=== PATIENT | female | born 1985 | race Caucasian/White ===

== ENCOUNTER 2021-01-20 07:06 | Emergency (ER) | payer MEDICAID ==
[~2021-01-20] VITALS: Ht 172.7 cm; Wt 82.0 kg
[2021-01-20 08:28] LABS: CLARITY URINE CLEAR (CLEAR); COLOR URINE YELLOW (YELLOW); KETONES URINE NEGATIVE (NEGATIVE); LEUKOCYTE ESTERASE URINE NEGATIVE (NEGATIVE); NITRITE URINE NEGATIVE (NEGATIVE); OCCULT BLOOD URINE NEGATIVE (NEGATIVE); PROTEIN URINE NEGATIVE (NEGATIVE); SPECIFIC GRAVITY URINE 1.018 (1.005-1.030); UROBILINOGEN URINE 0.2 E.U./dL (0.2-1.0)
[2021-01-20 08:51] LABS: BASOPHILS % 0.6 % (0.0-2.0); EOSINOPHILS % 0.3 % (0.0-5.0); HEMATOCRIT. 40.9 % (36.0-48.0); HEMOGLOBIN. 12.9 g/dL (12.0-16.0); LYMPHOCYTES % 18.6 % (20.0-50.0); MEAN CORPUSCULAR HEMOGLOBIN 25.8 pg (28.0-32.0); MEAN CORPUSCULAR VOLUME 81.7 fL (81.0-99.0); MEAN PLATELET VOLUME 7.9 fl (7.4-10.4); MONOCYTES % 4.6 % (2.0-8.0); NEUTROPHILS % 75.9 % (40.0-76.0); PLATELET 543 x1000/uL (130-400); RED BLOOD CELL COUNT 5.01 mill/uL (4.2-5.4); RED CELL DISTRIBUTION WIDTH 14.6 % (11.6-14.6)
[2021-01-20 08:56] LABS: CHLORIDE 102 mEq/L (98-107)
[2021-01-20 08:58] LABS: *AMPHETAMINES SCREEN URINE NEGATIVE (NEGATIVE); *BARBITURATES SCREEN URINE NEGATIVE (NEGATIVE); *BENZODIAZEPINES SCREEN URINE NEGATIVE (NEGATIVE); *COCAINE SCREEN URINE NEGATIVE (NEGATIVE); CANNABINOID URINE SCREEN NEGATIVE (NEGATIVE); METHADONE URINE SCREEN NEGATIVE (NEGATIVE); OPIATES URINE SCREEN NEGATIVE (NEGATIVE); PHENCYCLIDINE URINE SCREEN NEGATIVE (NEGATIVE)
[2021-01-20 09:01] LABS: ETHANOL BLOOD < 10 mg/dL
[2021-01-20] MEDS ORDERED: OLANZAPINE 5MG TABLET PO ONE (09:45)
[2021-01-20 10:50] VITALS: BP 122/74
== END 2021-01-20 10:50 | disposition home or self-care (01) ==
LOC: ER 07:21
DX: F20.9 Schizophrenia, unspecified (principal); E11.9 Type 2 diabetes mellitus without complications
CPT/HCPCS: 36415; 80053; 80305; 80307; 80320; 80329; 81003; 81025; 85025; 99283; G0480

== ENCOUNTER 2021-01-20 11:21 | Emergency (ER) | payer MEDICAID ==
[~2021-01-20] VITALS: Ht 167.6 cm; Wt 106.0 kg
[2021-01-20 12:25] VITALS: BP 150/92
== END 2021-01-20 13:13 | disposition home or self-care (01) ==
LOC: ER 11:21
DX: R44.3 Hallucinations, unspecified (principal); E11.9 Type 2 diabetes mellitus without complications
CPT/HCPCS: 99281; Z7610

== ENCOUNTER 2021-01-30 09:26 | Emergency (ER) | payer MEDICAID ==
[~2021-01-30] VITALS: Ht 160 cm; Wt 85.0 kg
[2021-01-30 10:25] LABS: BASOPHILS % 0.7 % (0.0-2.0); EOSINOPHILS % 0.5 % (0.0-5.0); HEMATOCRIT. 35.4 % (36.0-48.0); HEMOGLOBIN. 11.8 g/dL (12.0-16.0); LYMPHOCYTES % 15.7 % (20.0-50.0); MEAN CORPUSCULAR HEMOGLOBIN 26.9 pg (28.0-32.0); MEAN PLATELET VOLUME 7.6 fl (7.4-10.4); MONOCYTES % 4.7 % (2.0-8.0); NEUTROPHILS % 78.4 % (40.0-76.0); PLATELET 516 x1000/uL (130-400); RED BLOOD CELL COUNT 4.38 mill/uL (4.2-5.4); RED CELL DISTRIBUTION WIDTH 14.8 % (11.6-14.6)
[2021-01-30 10:32] LABS: CHLORIDE 104 mEq/L (98-107)
[2021-01-30 12:09] LABS: HCG SCREEN NEGATIVE
[2021-01-30] MEDS ORDERED: KETOROLAC 60MG/2ML VIAL IM ONE (13:30)
[2021-01-30] MEDS ORDERED: CEPH500T MT (13:37)
[2021-01-30] MEDS ORDERED: IBUP-2029 MT (13:37)
[2021-01-30 14:10] VITALS: BP 142/63
== END 2021-01-30 14:29 | disposition home or self-care (01) ==
LOC: ER 09:44
DX: N93.8 Other specified abnormal uterine and vaginal bleeding (principal); E11.9 Type 2 diabetes mellitus without complications; Z86.59 Personal history of other mental and behavioral disorders; Z98.890 Other specified postprocedural states
CPT/HCPCS: 36415; 74176; 80053; 83690; 84703; 85025; 96372; 99284; J1885

== ENCOUNTER 2021-02-12 20:33 | Emergency (ER) | payer MEDICAID ==
[~2021-02-12] VITALS: Ht 167.6 cm; Wt 104.0 kg
[~2021-02-12 20:33] MED LIST: CEPH500T MT; IBUP-2029 MT
[2021-02-12] MEDS ORDERED: LORAZEPAM 1MG TABLET PO ONE (22:45)
[2021-02-13] MEDS ORDERED: DIPH25CA83 MT (00:58)
== END 2021-02-13 01:28 | disposition home or self-care (01) ==
LOC: ER 20:33
DX: F41.9 Anxiety disorder, unspecified (principal); F20.9 Schizophrenia, unspecified; E11.9 Type 2 diabetes mellitus without complications
CPT/HCPCS: 99283; A4217; Z7610

== ENCOUNTER 2021-02-13 02:01 | Emergency (ER) | payer MEDICAID ==
[~2021-02-13] VITALS: Ht 167.6 cm; Wt 107.0 kg
[~2021-02-13 02:01] MED LIST changes: +DIPH25CA83 MT
[2021-02-13 03:09] VITALS: BP 105/68
== END 2021-02-13 03:10 | disposition home or self-care (01) ==
LOC: ER 02:47
DX: Z04.89 Encounter for examination and observation for other specified reasons (principal); F20.9 Schizophrenia, unspecified; F32.A Depression, unspecified; E11.9 Type 2 diabetes mellitus without complications
CPT/HCPCS: 99281

== ENCOUNTER 2021-02-14 20:40 | Emergency (ER) | payer MEDICAID ==
[~2021-02-14] VITALS: Ht 165.1 cm; Wt 85.0 kg
[2021-02-15] MEDS ORDERED: HYDR50CA5 MT (01:15)
[2021-02-15 02:00] VITALS: BP 121/79
== END 2021-02-15 02:00 | disposition home or self-care (01) ==
LOC: ER 20:40
DX: F41.9 Anxiety disorder, unspecified (principal); R44.0 Auditory hallucinations; F31.9 Bipolar disorder, unspecified
CPT/HCPCS: 81025; 99283

== ENCOUNTER 2021-02-16 21:25 | Emergency (ER) | payer MEDICAID ==
[~2021-02-16] VITALS: Ht 175.3 cm; Wt 124.7 kg
[~2021-02-16 21:25] MED LIST changes: +HYDR50CA5 MT
[2021-02-16 21:31] VITALS: BP 153/96
== END 2021-02-17 04:09 | disposition left against medical advice (07) ==
LOC: ER 21:25
DX: R68.89 Other general symptoms and signs (principal); Z53.21 Procedure and treatment not carried out due to patient leaving prior to being seen by health care provider